=== PATIENT | female | born 1960 | race Caucasian/White ===

== ENCOUNTER 2021-09-05 10:00 | Outpatient (CLI) | payer MEDICAID, SELFPAY | END 2021-09-05 10:01 | disposition home or self-care (01) | LOC: WOUND 13:10 | PROVIDERS: PCP Student in an Organized Health Care Education/Training Program; Visit Provider Emergency Medicine | DX: E11.621 Type 2 diabetes mellitus with foot ulcer (principal); Z87.891 Personal history of nicotine dependence; L97.521 Non-pressure chronic ulcer of other part of left foot limited to breakdown of skin | CPT/HCPCS: 11042; 99202; 99213 ==

== ENCOUNTER → 2021-09-12 10:26 | Outpatient (BNVA) | payer MEDICAID, SELFPAY | PROVIDERS: PCP Student in an Organized Health Care Education/Training Program; Visit Provider Nurse Practitioner Family | DX: E11.621 Type 2 diabetes mellitus with foot ulcer (principal); I96 Gangrene, not elsewhere classified; L97.521 Non-pressure chronic ulcer of other part of left foot limited to breakdown of skin; Z87.891 Personal history of nicotine dependence | CPT/HCPCS: 11042 ==

== ENCOUNTER → 2021-09-19 09:32 | Outpatient (BNVA) | payer MEDICAID, SELFPAY | PROVIDERS: PCP Student in an Organized Health Care Education/Training Program; Visit Provider Emergency Medicine | DX: E11.621 Type 2 diabetes mellitus with foot ulcer (principal); I96 Gangrene, not elsewhere classified; L97.521 Non-pressure chronic ulcer of other part of left foot limited to breakdown of skin; Z87.891 Personal history of nicotine dependence | CPT/HCPCS: 11042; A6220 ==

== ENCOUNTER → 2021-09-26 08:26 | Outpatient (BNVA) | payer MEDICAID, SELFPAY | PROVIDERS: PCP Student in an Organized Health Care Education/Training Program; Visit Provider Emergency Medicine | DX: E11.621 Type 2 diabetes mellitus with foot ulcer (principal); I96 Gangrene, not elsewhere classified; L97.521 Non-pressure chronic ulcer of other part of left foot limited to breakdown of skin; Z87.891 Personal history of nicotine dependence | CPT/HCPCS: 11042 ==

== ENCOUNTER → 2021-10-03 09:01 | Outpatient (BNVA) | payer MEDICAID, SELFPAY | PROVIDERS: PCP Student in an Organized Health Care Education/Training Program; Visit Provider Emergency Medicine | DX: E11.621 Type 2 diabetes mellitus with foot ulcer (principal); I96 Gangrene, not elsewhere classified; L97.521 Non-pressure chronic ulcer of other part of left foot limited to breakdown of skin; Z87.891 Personal history of nicotine dependence | CPT/HCPCS: 11042 ==

== ENCOUNTER → 2021-10-10 09:18 | Outpatient (BNVA) | payer MEDICAID, SELFPAY | PROVIDERS: PCP Student in an Organized Health Care Education/Training Program; Visit Provider Emergency Medicine | DX: E11.621 Type 2 diabetes mellitus with foot ulcer (principal); L97.521 Non-pressure chronic ulcer of other part of left foot limited to breakdown of skin; Z87.891 Personal history of nicotine dependence | CPT/HCPCS: 11042 ==

== ENCOUNTER → 2021-10-24 09:32 | Outpatient (BNVA) | payer MEDICAID, SELFPAY | PROVIDERS: PCP Student in an Organized Health Care Education/Training Program; Visit Provider Emergency Medicine | DX: Z09 Encounter for follow-up examination after completed treatment for conditions other than malignant neoplasm (principal); Z87.891 Personal history of nicotine dependence | CPT/HCPCS: 99213 ==

== ENCOUNTER 2021-10-27 10:20 | Outpatient (CLI) | payer MEDICAID, SELFPAY ==
--- NOTE | 2021-10-27 10:27 | MR_ITS ---
WS: [id number] MRI LEFT FOOT without CONTRAST. COMPARISON: None Multiplanar, multisequence imaging is performed without contrast. History: Long-term ulceration along the plantar surface of the foot at the level of the first toe. Hi story of renal failure. There is a marker placed along the medial aspect of the first toe at the level of the IP joint. There is a focal soft tissue ulceration along the plantar surface of the first metatarsal head. Soft tissu e ulceration extends over a depth of 10 mm and a width of 5 mm. There is additional edema within the soft tissues along the plantar surface of the first toe and the medial aspect of the first metatarsal head and the toe. This is at the site of the marker indicating the abnormality. The soft tissue infl ammatory changes and thickening does extend to the first metatarsal head but there is no marrow edema present. No marrow edema in the first toe. There are extensive degenerative changes at the first metatarsophalangeal joint and the first IP join t. There are small erosions which are very slightly extra articular at the first metatarsophalangeal joint. Narrowing of the joint space. There is also a small amount of fluid along the plantar surface of the first metatarsal head. No fractures or marrow edema. Mild pes planus. There is mild loss of the normal arch of the foot. Ochoa rowing of the tarsal articulations with osteophytes. Distal Achilles tendon is normal. MR/MR foot LT con* [id number] IMPRESSION: 1. Soft tissue ulceration extends to the plantar surface of the first metatars al head. There is a small amount of fluid around the plantar surface of the met atarsal head but no marrow edema. No fractures. No secondary signs of osteomyel itis. Soft tissue ulceration measures 10 mm in depth by 5 mm. 2. There is additional soft tissue fibrosis and scarring surrounding the first toe. 3. Moderate osteoarthritis at the first metatarsophalangeal joint and first IP joint.
--- NOTE | 2021-10-27 12:30 | USCV_ITS ---
Dave Tashia Age: 60 Gender: F : 1960 Exam Date: 10/27/2021 13:19 Ordering Phys: Miranda Hernandez DO Technologist: Jaimee Haynes [place] [facility] [place]: HISTORY: Non healing wound lt foot. Almost healed now and it took 2 years PROCEDURES: FINDINGS: Only 1 area of reflux noted and it is below the knee on lt. No significant reflux in the deep veins left side Significant venous reflux of the greater than 500 ms was noted at the below-knee segment of the greater saphenous vein on the left side. No significant reflux in the small saphenous veins CONCLUSIONS 1. Significant venous reflux of greater than 500 ms was noted at the below-knee segment of the greater saphenous vein on the left side. The vein was measuring 0.35 cm in diameter, at a depth of 1.25 cm from the surface. 2. No evidence of DVT or superficial vein thrombosis 3. The venous dimensions and depth from the surface are as mentioned above Dr Douglas Zuniga MD [facility] (Electronically Signed) Final Date: 29 Oct 2021 16:28 S
== END 2021-10-27 10:21 | disposition home or self-care (01) ==
LOC: RAD 10:22
PROVIDERS: PCP Student in an Organized Health Care Education/Training Program; Visit Provider Emergency Medicine
DX: E11.621 Type 2 diabetes mellitus with foot ulcer (principal)
CPT/HCPCS: 73718; 93971

== ENCOUNTER → 2021-10-31 08:47 | Outpatient (BNVA) | payer MEDICAID, SELFPAY | PROVIDERS: PCP Student in an Organized Health Care Education/Training Program; Visit Provider Emergency Medicine | DX: Z09 Encounter for follow-up examination after completed treatment for conditions other than malignant neoplasm (principal) | CPT/HCPCS: 99212 ==

== ENCOUNTER → 2022-03-20 10:21 | Outpatient (BNVA) | payer MEDICAID, SELFPAY | PROVIDERS: PCP Student in an Organized Health Care Education/Training Program; Visit Provider Podiatrist Foot & Ankle Surgery | DX: E11.8 Type 2 diabetes mellitus with unspecified complications (principal); E11.9 Type 2 diabetes mellitus without complications; B35.1 Tinea unguium; I73.9 Peripheral vascular disease, unspecified; L85.3 Xerosis cutis; G62.9 Polyneuropathy, unspecified; Z86.31 Personal history of diabetic foot ulcer | CPT/HCPCS: 11055; 11721; 99203 ==

== ENCOUNTER → 2022-05-21 15:09 | Outpatient (BNVA) | payer MEDICAID, SELFPAY | PROVIDERS: PCP Nurse Practitioner Family; Visit Provider Internal Medicine Cardiovascular Disease | DX: I11.0 Hypertensive heart disease with heart failure (principal); I50.9 Heart failure, unspecified; E11.9 Type 2 diabetes mellitus without complications; Z79.84 Long term (current) use of oral hypoglycemic drugs; R07.89 Other chest pain; R09.89 Other specified symptoms and signs involving the circulatory and respiratory systems; Z87.891 Personal history of nicotine dependence; R94.31 Abnormal electrocardiogram [ECG] [EKG] | CPT/HCPCS: 93005; 99214 ==

== ENCOUNTER → 2022-06-04 12:38 | Outpatient (BNVA) | payer MEDICAID, SELFPAY | PROVIDERS: PCP Nurse Practitioner Family; Visit Provider Podiatrist Foot & Ankle Surgery | DX: E11.9 Type 2 diabetes mellitus without complications (principal); I73.9 Peripheral vascular disease, unspecified; B35.1 Tinea unguium; L85.3 Xerosis cutis; G62.9 Polyneuropathy, unspecified; Z86.31 Personal history of diabetic foot ulcer | CPT/HCPCS: 11721 ==

== ENCOUNTER 2022-06-25 12:50 | Outpatient (CLI) | payer MEDICAID, SELFPAY ==
--- NOTE | 2022-06-25 | USCV_ITS ---
Tashia Acosta Age: 61 Gender: F : 1960 Exam Date: 06/25/2022 13:10 Ordering Phys: Douglas Zuniga MD ([email or web address]) Technologist: Jaimee Haynes Exam Location: [facility] [place] Indication: CHF BP: 131 / 64 HR: 83 Rhythm: Sinus Technical Quality: Adequate MEASUREMENTS (Male / Female) Normal Values 2D ECHO LV Diastolic Diameter PLAX 3.1 cm 4.2 - 5.9 / 3.9 - 5.3 cm LV Systolic Diameter PLAX 2.5 cm LV Chamber Size 3.1 cm IVS Diastolic Thickness 1.8 cm 0.6 - 1.0 / 0.6 - 0.9 cm IVS Systolic Thickness 1.6 cm LVPW Diastolic Thickness 1.7 cm 0.6 - 1.0 / 0.6 - 0.9 cm LVPW Systolic Thickness 1.8 cm RV Chamber Size 2.5 cm LVOT Diameter 2.0 cm LV Ejection Fraction 2D Teich 40.3 % LV Ejection Fraction MOD 2C 48.6 % LV Ejection Fraction 2C AL 54.0 % LA Diameter 3.3 cm LA Width 3.2 cm LA Height 4.4 cm RA Width 3.1 cm RA Height 4.1 cm Aorta at Sinotubular Diameter 2.4 cm IVC Diameter 2.1 cm M-MODE Aortic Annulus Diameter 3.6 cm LA Ao Ratio MM 0.9 DOPPLER AV Peak Velocity 141.0 cm/s LVOT Peak Velocity 114.0 cm/s AV Area Cont Eq vti 2.6 cm squared AV Area Cont Eq pk 2.6 cm squared MV Area PHT 3.7 cm squared Mitral E to A Ratio 0.7 MV E' Velocity 46.0 cm/s Mitral E to MV E' Ratio 18.1 Mitral E to LV E' Lateral Ratio 16.1 Mitral E to LV E' Septal Ratio 21.2 TR Peak Velocity 216.9 cm/s TR Peak Gradient 18.8 mmHg TR Mean Velocity 147.5 cm/s TR Mean Gradient 9.9 mmHg TR Velocity Time Integral 51.0 cm TV Peak E Velocity 57.0 cm/s Right Atrial Pressure 3.0 mmHg Pulmonary Artery Systolic Pressu 21.8 mmHg PV Peak Velocity 101.0 cm/s RV Acceleration Time 0.1 s RV Ejection Time 0.3 s RV AcT/ET 0.4 FINDINGS Left Ventricle Normal left ventricular size and systolic function, EF 67 %. Moderate left ventricular hypertrophy. No regional wall motion abnormalities. Grade I/IV diastolic dysfunction (abnormal relaxation filling pattern), normal to mildly elevated filling pressures. Right Ventricle Normal right ventricular size and systolic function. Right Atrium Normal right atrial size. Left Atrium Mildly increased left atrial size. Mitral Valve Thickened mitral valve. Moderate mitral annular calcification. Aortic Valve Thickened aortic valve. Tricuspid Valve Mild tricuspid valve regurgitation. Pulmonic Valve No gross abnormalities noted Pericardium No pericardial effusion. Aorta Normal aortic annulus size. IVC Normal inferior vena cava. CONCLUSIONS Normal left ventricular size and systolic function, EF 67 %. Moderate left ventricular hypertrophy. No regional wall motion abnormalities. Grade I/IV diastolic dysfunction (abnormal relaxation filling pattern), normal to mildly elevated filling pressures. Mildly increased left atrial size. Thickened mitral valve. Moderate mitral annular calcification. Thickened aortic valve. Mild tricuspid valve regurgitation. Estimated pulmonary artery peak systolic pressure was 22 mmHg There is no pericardial effusion. There are no intracardiac masses. No similar previous studies are available for comparison Dr Douglas Zuniga MD [facility] (Electronically Signed) Final Date: 25 June 2022 16:50 S
--- NOTE | 2022-06-25 13:00 | USCV_ITS ---
Dave Tashia Age: 61 Gender: F : 1960 Exam Date: 06/25/2022 13:32 Ordering Phys: Douglas Zuniga MD ([email or web address]) Technologist: Jaimee Haynes Exam Location: [facility] [place] Indication: BRUIT AND CCA STENOSIS Risk Factors: Unknown Previous Vascular Surgery: None Right Brachial BP: / Left Brachial BP: / Right Left Velocity (cm/s) Spectral Plaque Velocity (cm/s) Spectral Plaque Syst/Diast Broadening Syst/Diast Broadening 113.60/26.50 Prox CCA 87.10 / 22.10 83.80/ 22.10 Mid CCA 76.70 / 14.50 81.60/ 14.30 Hetro Distal CCA 73.70 / 19.40 Hetro 79.40/ 19.80 Hetro Prox ICA 102.70/ 25.20 Hetro 92.60/ 34.20 Mid ICA 107.10/ 23.00 90.90/ 30.30 Distal ICA 93.30 / 32.10 119.10 Hetro ECA 158.90 Hetro 1.11 ICA/CCA 1.40 Antegrade Vertebral Antegrade 34.60/ 11.50 cm/s 88.80/ 23.00 cm/s Bi Subclavian Tri 127.7 199.4 0 0 FINDINGS Moderate heterogenous plaques at the bifurcations and proximal internal carotid arteries bilaterally Intimal thickening and minimal plaques in the common carotid arteries bilaterally. Antegrade flow in the vertebral arteries bilaterally. Near normal Doppler velocities in the external carotid and subclavian arteries bilaterally CONCLUSIONS Moderate heterogenous plaques at the bifurcations and proximal internal carotid arteries bilaterally with a Doppler features suggesting less than 50% stenosis. Intimal thickening and minimal plaques in the common carotid arteries bilaterally Dr Douglas Zuniga MD [facility] (Electronically Signed) Final Date: 25 June 2022 17:11 S
== END 2022-06-25 12:51 | disposition home or self-care (01) ==
LOC: RAD 12:51
PROVIDERS: PCP Nurse Practitioner Family; Visit Provider Internal Medicine Cardiovascular Disease
DX: I65.29 Occlusion and stenosis of unspecified carotid artery (principal); I50.9 Heart failure, unspecified; R09.89 Other specified symptoms and signs involving the circulatory and respiratory systems; I08.3 Combined rheumatic disorders of mitral, aortic and tricuspid valves
CPT/HCPCS: 93306; 93880

== ENCOUNTER 2022-07-12 06:42 | Outpatient (CLI) | payer MEDICAID, SELFPAY ==
--- NOTE | 2022-07-12 | ECG_ITS ---
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 Interpretive Statements NAME OF STUDY: LEXISCAN SESTAMIBI STRESS TEST INDICATION: [rule out ischemia, ] Procedure: At the baseline, the blood pressure was 150/88 mmHg with a heart rate of 78 bpm. The electrocardiogram showed normal sinus rhythm, normal axis with normal ST and T's. The Lexiscan was infused over a period of 20 seconds. A total of 0.4 mg of Lexiscan was infused. The stress phase was continued for a total of 5 minutes. Heart rate was at the end of stress phase was 92 bpm and a blood pressure of 135/70 mmHg. The EKG at the peak infusion revealed normal sinus rhythm with no significant ST-T wave changes. Sestamibi was injected 20 seconds after the Lexiscan infusion. Blood pressure at the end of recovery phase was 138/70 mmHg with a heart rate of 90 bpm. Conclusion: 1. Normal EKG response to Lexiscan infusion 2. No Lexiscan induced chest pain or cardiac arrhythmia. 3. Normal blood pressure and heart rate response. 4. Sestamibi/sestamibi perfusion scan pending; see separate report. Electronically Signed On 07-22-2022 20:23:32 HOUSING LIAISON by José Luis Valdez M.D. [email or web address] Del[employer] [email or web address] lady of [id number]
[2022-07-12 07:05] VITALS: BMI 36.1
--- NOTE | 2022-07-12 07:09 | NMCV_ITS ---
NM misa perf SPECT r/s* [id number] Tashia Acosta Age: 61 Gender: F : 1960 Exam Date: 07/12/2022 07:09 Ordering Phys: Douglas Zuniga MD ([email or web address]) Technologist: JAMARCUS Palacios Exam Location: [facility] Indications: CORONARY ANGIOPLASTY STATUS STRESS TEST Please see separate stress test report in [facility] for full findings IMAGE PROTOCOL Rest/Stress 1 Lexiscan Day Radiopharmaceutical Dose (mCi) Administration Site Administered by Rest: Tc-99m 10.6 IV JAMARCUS Gustafson Sestamibi Stress:Tc-99m 32.9 IV JAMARCUS Gustafson Sestamibi Rest: 12-Jul-2022 60 Discovery 630 Stress: 12-Jul-2022 30 Discovery 630 0.4mg Lexiscan. Supine position only as patient was unable to lay prone. SPECT RESULTS Technical Quality: Excellent Raw Data Analysis: Normal Image Corrections: No attenuation or motion correction applied Summed Stress Score: 4 Summed Rest Score: 2 Summed Difference Score: 2 PERFUSION FINDINGS Small sized, fixed perfusion defects noted in apical lateral, inferolateral and inferior amaya. 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 FUNCTIONAL RESULTS (calculated via Gated SPECT) Stress Image LV EF (%): 78 Stress EDV (mL):92 TID: 1.11 Stress ESV (mL):20 FUNCTIONAL FINDINGS: There is normal left ventricular systolic function. IMPRESSIONS 1. Abnormal myocardial perfusion imaging with small sized prior infarcts seen in the left circumflex artery and RCA territories. 2. LV systolic function is normal José Luis Valdez MD (Electronically Signed) Final Date: 14 July 2022 10:34 S
[2022-07-12 09:00] VITALS: BP 138/70; PULSE 90
== END 2022-07-12 06:43 | disposition home or self-care (01) ==
PROVIDERS: PCP Nurse Practitioner Family; Visit Provider Internal Medicine Cardiovascular Disease
DX: Z98.61 Coronary angioplasty status (principal)
CPT/HCPCS: 36415; 78452; 93017; 96374; A9500

== ENCOUNTER → 2022-08-13 12:47 | Outpatient (BNVA) | payer MEDICAID, SELFPAY | PROVIDERS: PCP Nurse Practitioner Family; Visit Provider Podiatrist Foot & Ankle Surgery | DX: E11.9 Type 2 diabetes mellitus without complications (principal); I73.9 Peripheral vascular disease, unspecified; B35.1 Tinea unguium; L85.3 Xerosis cutis; G62.9 Polyneuropathy, unspecified; Z86.31 Personal history of diabetic foot ulcer; L84 Corns and callosities | CPT/HCPCS: 11055; 11721 ==

== ENCOUNTER 2022-11-28 09:08 | Emergency (ER) | payer MEDICAID, SELFPAY ==
[2022-11-28 09:08] VITALS: BP 187/83; PULSE 84; RESP 18; TEMP 36.5; O2SAT 96; BMI 35.5
--- NOTE | 2022-11-28 09:27 | XRR_ITS ---
PROCEDURE INFORMATION: Exam: XR Chest Exam date and time: 11/28/2022 9:31 AM Age: 61 years old Clinical indication: Cough and dyspnea; Prior surgery; Surgery date: 6+ months; Surgery type: Dialysis cath; Additional info: Dyspnea/cough TECHNIQUE: Imaging protocol: Radiologic exam of the chest. Views: 1 view. COMPARISON: No relevant prior studies available. FINDINGS: Tubes, catheters and devices: Central venous catheter its tip overlying the superior vena cava. Surgical clips seen involving the left arm. Lungs: Unremarkable. No consolidation. Pleural spaces: Unremarkable. No pleural effusion. No pneumothorax. Heart/Mediastinum: Unremarkable. No cardiomegaly. Bones/joints: Unremarkable. XR/XR chest 1V portable [id number] IMPRESSION: No acute findings.
--- NOTE | 2022-11-28 09:27 | ECG_ITS ---
[facility] Test Date: 2022-11-28 Pat Name: Tashia Acosta Department: Room: Gender: Female Wood Floor Refinisher: : 1960 Requested By: Kenroy Prado Order Number: [id number] Power MD: José Luis Valdez M.D. Measurements Intervals [place] Rate: 80 P: 52 [place]: 145 QRS: 72 QRSD: 108 T: 98 QT: 384 QTc: 443 Interpretive Statements SINUS RHYTHM MINIMAL ST DEPRESSION [0.025+ mV ST DEPRESSION] No previous ECG available for comparison Electronically Signed On 11-28-2022 12:28:49 CDT by José Luis Valdez M.D. [email or web address]/[id number]
[2022-11-28 09:43] VITALS: BP 177/91; PULSE 80; O2SAT 100
[2022-11-28 10:15] LABS: Eosinophils # 0.1 10^3/uL (0.0-0.8); Eosinophils % 2.5 %; Hematocrit 40.5 % (37.0-47.0); Hemoglobin 11.8 g/dL (11.5-15.3); Lymphocytes # 0.7 10^3/uL (0.8-4.8); Lymphocytes % 19.9 %; Mean Corpuscular HGB Conc 29.1 g/dL (30.0-36.0); Mean Corpuscular Hemoglobin 29.9 pg (28.0-34.0); Mean Corpuscular Volume 102.5 fl (81-99); Mean Platelet Volume 11.1 fL (7.4-10.4); Monocytes # 0.4 10^3/uL (0.2-0.9); Monocytes % 10.8 %; Neutrophils # 2.39 10^3/uL (1.8-7.7); Neutrophils % 66.2 %; Nucleated Red Blood Cells % 0 %; Platelet Count 148 10^3/cmm (130-400); Red Blood Count 3.95 10^6/uL (4.1-5.3); Red Cell Distribution Width 14.5 % (12.1-15.1); White Blood Count 3.6 10^3/uL (4.0-10.0)
[2022-11-28 10:39] LABS: Alanine Aminotransferase 6 U/L (0-33); Albumin Level 3.7 g/dL (3.5-5.2); Alkaline Phosphatase 75 U/L (35-105); Anion Gap 12.7 (5-19); Aspartate Amino Transferase 20 U/L (0-32); Blood Urea Nitrogen 28 mg/dL (8-23); Calcium 8.9 mg/dL (8.5-10.5); Carbon Dioxide 28 mmol/L (22-29); Chloride 101 mmol/L (98-107); Globulin 3.2 g/dL (1.3-4.6); Glomerular Filtration Rate 15.3 mL/min (90-130); Glucose 117 mg/dL (65-115); NT Pro B Type Natriuretic Pept 3549 pg/mL (0-125); Osmolality Calculated 291 mOsm/kg (285-295); Potassium 4.7 mmol/L (3.5-5.1); Sodium 137 mmol/L (136-145); Total Bilirubin 0.3 mg/dL (0.15-1.2); Total Protein 6.9 g/dL (6.6-8.7)
--- NOTE | 2022-11-28 11:10 | W.ED.SOB ---
HPI - SOB/Dyspnea General: Chief Complaint: Shortness of Breath/Dyspnea Stated Complaint: resp distress Time Seen by Provider: 11/28/22 09:10 Source: patient Mode of arrival: EMS History of Present Illness: HPI Narrative: 61-year-old female presents emergency room complaining of shortness of breath. She has a history of end-stage renal disease was getting her dialysis run this morning became short of breath she is normally on 2 to 3 L of oxygen she arrived here on 4 L. She is asymptomatic at this time. She had received some Benadryl at the dialysis clinic. She is satting on 1 L when I came to the room at upper 90% increase her to 2 L she remained asymptomatic. She is awake alert and oriented and denies ever having any chest discomfort. Her end-stage renal disease she tells me it was precipitated by complications of COVID. MD elicited complaint: shortness of breath Onset (ago): minute(s) Timing: constant Severity: mild Exacerbating factors: nothing Relieving factors: nothing Associated symptoms: Deny abdominal pain, chest congestion, chest pain, cough, diaphoresis, dizziness, extremity pain, fever(s), hemoptysis, lightheadedness, myalgias, nausea, orthopnea, palpitations, paresthesias, polydipsia, polyuria, rash, sense of impending doom, syncope or vomiting Treatment prior to arrival: none Related Data: Home oxygen amount: 2 liters Review of Systems Const: Denies: fever(s), chills, fatigue, malaise or diaphoresis ENMT: Denies: throat pain, ear or mastoid pain, nasal discharge or nasal congestion Card: Denies: chest pain, palpitations, lightheadedness, syncope or orthopnea Resp: Reports: dyspnea; Denies: productive cough, non-productive cough, hemoptysis or chest congestion GI: Denies: abdominal pain, nausea or vomiting : Denies: flank pain, difficulty voiding, dysuria, urinary frequency or urinary urgency Musc: Denies: extremity pain Skin/Breast: Denies: rash or pruritus Neuro: Denies: dizziness Endo: Denies: polyuria or polydipsia PFSH ED PFSH: Medical History CHF (congestive heart failure) HTN (hypertension) PAD (peripheral artery disease) Family History Mother CAD (coronary artery disease) Pacemaker Hypertension Diabetes Social History Smoking and tobacco status: former smoker Physical Exam Const: COMMON NORMALS: no acute distress GENERAL APPEARANCE: cooperative and comfortable ORIENTATION/CONSCIOUSNESS: Yes awake, Yes oriented to person, Yes oriented to place and Yes oriented to time HENMT: COMMON NORMALS: normocephalic, atraumatic and hearing grossly normal bilaterally HEAD & SCALP: normocephalic and atraumatic Resp: COMMON NORMALS: normal respiratory effort, No retractions, No use of accessory muscles and clear to auscultation bilaterally AUSCULTATION: clear to auscultation bilaterally Cardio: COMMON NORMALS: regular rate, regular rhythm and No murmurs present (Cardio) RATE: regular rate RHYTHM: regular rhythm GI: COMMON NORMALS: Soft to palpation and No hepatosplenomegaly present AUSCULTATION: Yes normoactive bowel sounds PALPATION: Yes Soft to palpation, No Tenderness to palpation present (GI), No Guarding due to palpation present (GI) and Yes No hepatosplenomegaly present Extremity: COMMON NORMALS: normal to inspection, capillary refill normal, no clubbing, cyanosis or edema, no calf tenderness and no pedal edema Neuro: SENSORIUM/ORIENTATION: Yes oriented to person, Yes oriented to place and Yes oriented to time Skin: COMMON NORMALS: no rashes or lesions noted GENERAL SKIN EXAM: no rashes or lesions noted Course Vital Signs: Vital signs: Vital Signs Temperature 97.7 F 11/28/22 09:08 Pulse Rate 80 11/28/22 09:43 Respiratory Rate 18 11/28/22 09:08 Blood Pressure 177/91 11/28/22 09:43 Pulse Oximetry 100 11/28/22 09:43 Oxygen Delivery Me thod Nasal Cannula 11/28/22 09:43 Oxygen Flow Rate 2 11/28/22 09:43 MDM - SOB/Dyspnea Medical Decision Making Labs and imaging reviewed patient's oxygen saturations are normal on her usual oxygen level. No acute findings on her chest x-ray. We will discharge patient home she should return directly to dialysis clinic to complete her round of dialysis. He has not had any chest pain. Medical Records I reviewed the patient's medical records. Lab Data I reviewed the patient's lab results. 11/28/22 10:05 11/28/22 10:05 Labs/Radiology: Radiology Impressions Chest X-Ray 11/28/22 09:27 IMPRESSION: No acute findings. Laboratory Results WBC 3.6 10^3/uL (4.0-10.0) L 11/28/22 10:05 RBC 3.95 10^6/uL (4.1-5.3) L 11/28/22 10:05 Hgb 11.8 g/dL (11.5-15.3) 11/28/22 10:05 Hct 40.5 % (37.0-47.0) 11/28/22 10:05 MCV 102.5 fl (81-99) H 11/28/22 10:05 MCH 29.9 pg (28.0-34.0) 11/28/22 10:05 MCHC 29.1 g/dL (30.0-36.0) L 11/28/22 10:05 RDW 14.5 % (12.1-15.1) 11/28/22 10:05 Plt Count 148 10^3/cmm (130-400) 11/28/22 10:05 MPV 11.1 fL (7.4-10.4) H 11/28/22 10:05 Neut % (Auto) 66.2 % 11/28/22 10:05 Lymph % (Auto) 19.9 % 11/28/22 10:05 [place] % (Auto) 10.8 % 11/28/22 10:05 Eos % (Auto) 2.5 % 11/28/22 10:05 Baso % (Auto) 0.0 % 11/28/22 10:05 Neut # (Auto) 2.39 10^3/uL (1.8-7.7) 11/28/22 10:05 Lymph # (Auto) 0.7 10^3/uL (0.8-4.8) L 11/28/22 10:05 [place] # (Auto) 0.4 10^3/uL (0.2-0.9) 11/28/22 10:05 Eos # (Auto) 0.1 10^3/uL (0.0-0.8) 11/28/22 10:05 Baso # (Auto) 0.0 10^3/uL (0.0-0.1) 11/28/22 10:05 Nucleated RBC % (auto) 0 % 11/28/22 10:05 Nucleated RBCs # 0.0 /100WBC 11/28/22 10:05 Sodium 137 mmol/L (136-145) 11/28/22 10:05 Potassium 4.7 mmol/L (3.5-5.1) 11/28/22 10:05 Chloride 101 mmol/L (98-107) 11/28/22 10:05 Carbon Dioxide 28 mmol/L (22-29) 11/28/22 10:05 Anion Gap 12.7 (5-19) 11/28/22 10:05 BUN 28 mg/dL (8-23) H 11/28/22 10:05 Creatinine 3.1 mg/dL (0.5-0.9) H 11/28/22 10:05 GFR Calculation 15.3 mL/min (90-130) L 11/28/22 10:05 Glucose 117 mg/dL (65-115) H 11/28/22 10:05 Calculated Osmolality 291 mOsm/kg (285-295) 11/28/22 10:05 Calcium 8.9 mg/dL (8.5-10.5) 11/28/22 10:05 Total Bilirubin 0.3 mg/dL (0.15-1.2) 11/28/22 10:05 AST 20 U/L (0-32) 11/28/22 10:05 ALT 6 U/L (0-33) 11/28/22 10:05 Alkaline Phosphatase 75 U/L (35-105) 11/28/22 10:05 NT-Pro-B Natriuret Pep 3549 pg/mL (0-125) H 11/28/22 10:05 Total Protein 6.9 g/dL (6.6-8.7) 11/28/22 10:05 Albumin 3.7 g/dL (3.5-5.2) 11/28/22 10:05 Globulin 3.2 g/dL (1.3-4.6) 11/28/22 10:05 Urine Color Light yellow (Yellow) 11/28/22 11:06 Urine Appearance Clear (CLEAR) 11/28/22 11:06 Urine pH 8 (5-7) H 11/28/22 11:06 Ur Specific [place] 1.015 (1.005-1.030) 11/28/22 11:06 Urine Protein 1+ (Negative) H 11/28/22 11:06 Urine Glucose (UA) Norm (Normal) 11/28/22 11:06 Urine Ketones Negative (Negative) 11/28/22 11:06 Urine Blood Neg (Negative) 11/28/22 11:06 Urine Nitrate Negative (Negative) 11/28/22 11:06 Urine Bilirubin Neg (Negative) 11/28/22 11:06 Prot Sulfosalicylic Acd Positive (Negative) 11/28/22 11:06 Urine Urobilinogen Norm mg/dL (Negative) 11/28/22 11:06 Ur Leukocyte Esterase Negative (Negative) 11/28/22 11:06 Urine RBC None /hpf (0-2) 11/28/22 11:06 Urine WBC Rare /hpf (0-5) 11/28/22 11:06 Ur Squamous Epith Cells 0-4 /hpf (0-5) H 11/28/22 11:06 Amorphous Sediment Not Reportable 11/28/22 11:06 Urine Bacteria Trace /hpf (NONE) 11/28/22 11:06 Discharge Plan Discharge Patient Disposition: Home Clinical Impression: Dyspnea, HTN (hypertension), ESRD (end stage renal disease) on dialysis Condition: Stable Prescriptions: No Action cholecalciferol (vitamin D3) 25 mcg (1,000 unit) capsule 25 mcg PO DAILY glipizide 5 mg tablet 5 mg PO DAILY furosemide 80 mg tablet 80 mg PO DAILY amlodipine 10 mg tablet 10 mg PO DAILY metoprolol tartrate 25 mg tablet 12.5 mg PO BID (DME) diabetic shoes See Rx Instructions .Route .MEDSUPPLY Qty: 1 0RF Rx Instructions: As directed (DME) diabetic shoes with 3 inserts See Rx Instructions .Route .MEDSUPPLY Qty: 1 0RF Rx Instructions: As directed pantoprazole 40 mg Tablet,Delayed Release (Dr/Ec) 40 mg PO DAILY oxycodone 5 mg tablet 5 mg PO Q4H PRN (Reason: Pain) sevelamer carbonate 800 mg tablet 800 mg PO TID RenaPlex-D 800 mcg-12.5 mg -2,000 unit Tablet 1 tab PO DAILY Discharge Orders: Discharge ED (Routine); Ordered 11/28/22 Ordered By: Kenroy Taylor Discharge Diet: Usual diet Discharge Activity: Increase activity as tolerated Patient Instructions: Opioid Safety, Pain Management Activity Restrictions/Additional Instructions: Recommend you return to dialysis clinic to complete your regular dialysis run. Coding Level of Care Code ED Toll Repairer Central Office for Nany Archer
[2022-11-28 12:06] LABS: Add Urine Microscopic? YES; Bilirubin Urine Neg (Negative); Blood Urine Neg (Negative); Glucose Urine UA Norm (Normal); Ketones Urine Negative (Negative); Leukocyte Esterase Urine Negative (Negative); Nitrate Urine Negative (Negative); Protein Urine 1+ (Negative); Specific Gravity, Urine 1.015 (1.005-1.030); Sulfosalicylic Acid Urine Positive (Negative); Urine Appearance Clear (CLEAR); Urine Color Light yellow (Yellow); Urobilinogen Urine Norm (Negative); pH Urine 8 (5-7)
[2022-11-28 12:07] LABS: Bacteria Urine TRACE /hpf; Squamous Epithelial Cell Urine 0-4 /hpf (0-5); WBC Urine RARE /hpf (0-5)
[2022-11-28 12:08] LABS: Add Urine Culture? No
--- NOTE | 2022-12-06 13:21 | DCPLANNER ---
table games shift manager called patient due to no primary care physician - no answer at this time.
== END 2022-11-28 11:32 | disposition home or self-care (01) ==
PROVIDERS: Emergency Provider Family Medicine
DX: R06.00 Dyspnea, unspecified (principal); I13.2 Hypertensive heart and chronic kidney disease with heart failure and with stage 5 chronic kidney disease, or end stage renal disease; N18.6 End stage renal disease; I50.9 Heart failure, unspecified; Z99.2 Dependence on renal dialysis; Z99.81 Dependence on supplemental oxygen; Z87.891 Personal history of nicotine dependence; Z79.84 Long term (current) use of oral hypoglycemic drugs
CPT/HCPCS: 36415; 71045; 80053; 81001; 83880; 85025; 93005; 99285

== ENCOUNTER → 2022-12-10 12:11 | Outpatient (BNVA) | payer MEDICAID, SELFPAY | PROVIDERS: Visit Provider Specialist | DX: I11.0 Hypertensive heart disease with heart failure (principal); I50.9 Heart failure, unspecified | CPT/HCPCS: 99214 ==

== ENCOUNTER 2022-12-31 08:26 | Observation (INO) | payer MEDICAID, SELFPAY ==
[2022-12-31] VITALS (9 sets, daily range): BP systolic 147–167; BP diastolic 68–92; PULSE 72–90; RESP 15–28; TEMP 36.5–36.6; O2SAT 74–96; BMI 36.1
--- NOTE | 2022-12-31 09:27 | CT_ITS ---
WS: [id number] CT ABDOMEN AND PELVIS NONCONTRAST HISTORY: Abdominal pain TECHNIQUE: Imaging performed through the abdomen and pelvis. Coronal and sagittal reformats are submi tted. All CT scans at [facility] use at least one of these dose optimization techniques: auto mated exposure control; mA and/or kV adjustment per patient size (includes targeted exams where dose is matched to clinical indication); or iterative reconstruction. DLP: 1113.25 mGy.cm COMPARISON: None available. Lower thorax: Mild hazy attenuation at the lung bases is probably due to poor inspiration or mild pne umonitis. Mild dependent changes.. Tiny LEFT pleural effusion. Low-attenuation masses near the RIGHT heart are probably cardiophrenic cysts. Liver: Very mild hepatomegaly. No bile duct dilatation. Gallbladder: Cholecystectomy. Pancreas: Mild atrophy. Mildly distended common bile duct is probably on the basis of the cholecystec adia. No obstruction. Spleen: Mildly enlarged spleen measures 15 cm in length. Adrenal glands: Bilateral fat-containing adrenal masses. Likely adrenal myelolipomas. Right kidney: P erinephric stranding and mild atrophy. Vascular calcifications. Left kidney: Perinephric stranding and mild atrophy. No obstruction. Aorta: Moderate to severe atherosclerosis abdominal aorta. No aneurysm. Atherosclerosis continues int o the common iliac arteries. Heavy calcification mesenteric arteries. No free fluid. There is an acute inflammatory process involving the omentum and mesenteric fat in the pelvis just to the LEFT of midline. There is focal stranding measuring 6.9 x 5.6 cm it extends to th e peritoneal wall. There is additional overlying subcutaneous edema and stranding. There is a more f ocal ill-defined low-attenuation mass measuring 2.9 x 2.6 cm within the ventral abdominal wall. GI tract: No obstructive pattern. Diffuse mild constipation. Mild diverticular burden with no acute d iverticulitis. Abdominal wall: Diffuse soft tissue stranding and cellulitis below the umbilicus and along the midlin e. There is a more focal low-attenuation mass just to the LEFT of midline which may be a small phlegm on or abscess developing. Pelvis: Uterus and ovaries are both identified. Negative. Negative urinary bladder. Osseous structures: Unremarkable. CT/CT abdomen pelvis wo con [id number] IMPRESSION: 1. Large area of omental and mesenteric fat stranding just to the LEFT of midl ine in the infraumbilical region. Suspect this is probably an area of omental i nfarction which extends to the ventral abdominal wall. There is also continuous inflammation extending into the subcutaneous soft tissues and a possible subcu taneous abscess or phlegmon at the same level. Due to the extensive involvement of the omentum and the subcutaneous soft tissue recommend follow-up CT in 3-4 weeks after treatment with short resolution. This would ensure no underlying ad ditional mass. There may have been a defect within the abdominal wall allowing the inflammatory changes associate with the infarct to continue beyond the amelia toneal cavity. 2. Mild bilateral perinephric stranding with no obstruction. 3. Prior cholecystectomy. 4. Sigmoid diverticulosis without acute diverticulitis. 5. Bilateral adrenal myolipomas.
--- NOTE | 2022-12-31 09:32 | ED_ITS ---
HPI - Abdominal Pain General: Chief Complaint: Abdominal Pain Stated Complaint: abd pain Time Seen by Provider: 12/31/22 08:27 Source: patient Mode of arrival: ambulatory History of Present Illness: 62-year-old female presents emergency room complaining of epigastric supraumbilical pain. He said this been present ever since she had her hernia surgery done in October. She has had some nausea and vomiting. She denies any chest pain or shortness of breath she has been very nauseous. She has used some oxycodone for relief of the pain but is still having discomfort. She denies any medication melena hematemesis or coffee-ground emesis. MD elicited complaint: abdominal pain Onset (ago): week(s) Pain Consistency: constant Location: Epigastric Quality: cramping Exacerbating factors: eating Relieving factors: nothing Associated Symptoms: Reports bloating, GI cramping, nausea and poor appetite; Denies anorexia, belching, change in bowel habits, change in stool character, chills, coffee ground emesis, constipation, diarrhea, dyspepsia, dysuria, excessive flatus, fever(s), heartburn, hematochezia, hematuria, hematemesis, fecal incontinence, loose stools, melena, syncope and vomiting Review of Systems Const: Denies: fever(s) or chills Card: Denies: syncope Resp: Denies: dyspnea, productive cough or non-productive cough GI: Reports: nausea, bloating and GI cramping; Denies: vomiting, hematemesis, coffee ground emesis, heartburn, diarrhea, constipation, belching, excessive flatus, fecal incontinence, change in bowel habits, change in stool character, hematochezia or melena : Denies: dysuria or hematuria Skin/Breast: Denies: rash or pruritus PFS ED PFSH: Medical History (Updated 12/31/22 @ 13:10 by Kenroy Taylor DO) CHF (congestive heart failure) Chronic hepatitis B COPD (chronic obstructive pulmonary disease) Diabetes mellitus Fluid overload GERD (gastroesophageal reflux disease) Hemodialysis patient Hepatitis B HTN (hypertension) PAD (peripheral artery disease) Surgical History S/P cholecystectomy S/P hernia surgery x 2 S/P oophorectomy Family History Mother CAD (coronary artery disease) Pacemaker Hypertension Diabetes Social History (Updated 12/31/22 @ 12:35 by Andrew Reyes MD) Smoking and tobacco status: former smoker Alcohol intake: never Physical Exam Const: GENERAL APPEARANCE: cooperative and comfortable ORIENTATION/CONSCIOUSNESS: Yes awake, Yes oriented to person, Yes oriented to place and Yes oriented to time HENMT: COMMON NORMALS: normocephalic, atraumatic and hearing grossly normal bilaterally HEAD & SCALP: normocephalic and atraumatic Resp: COMMON NORMALS: normal respiratory effort, No retractions, No use of accessory muscles and clear to auscultation bilaterally AUSCULTATION: clear to auscultation bilaterally Cardio: COMMON NORMALS: regular rate, regular rhythm and No murmurs present (Cardio) RATE: regular rate RHYTHM: regular rhythm GI: COMMON NORMALS: Soft to palpation and No hepatosplenomegaly present AUSCULTATION: Yes normoactive bowel sounds PALPATION: Yes Soft to palpation, No Tenderness to palpation present (GI), No Guarding due to palpation present (GI) and Yes No hepatosplenomegaly present Extremity: COMMON NORMALS: normal to inspection, capillary refill normal, no clubbing, cyanosis or edema, no calf tenderness and no pedal edema Neuro: SENSORIUM/ORIENTATION: Yes oriented to person, Yes oriented to place and Yes oriented to time Skin: COMMON NORMALS: no rashes or lesions noted GENERAL SKIN EXAM: no rashes or lesions noted Course Vital Signs: Vital signs: Vital Signs Temperature 97.8 F 12/31/22 09:02 Pulse Rate 86 12/31/22 12:12 Respiratory Rate 16 12/31/22 12:12 Blood Pressure 167/85 12/31/22 12:12 Pulse Oximetry 92 12/31/22 12:12 Oxygen Delivery Me thod Nasal Cannula 12/31/22 12:12 Oxygen Flow Rate 3 12/31/22 12:12 MDM - Abdominal Pain Medical Decision Making Patient's hyperkalemia confirmed by repeat lab draw and treated in the ER. Initially was not aware that she was on end-stage renal disease on dialysis was not on her history and she had not listed when asked her chronic medical problems. Her hyperkalemia was treated in the ER we will admit for hyperkalemia discussed with the hospitalist dialysis orders written CT there is question of ischemic area call and talk to Dr. Myles she thinks it is omental ischemia is probably transient from her hernia surgery she did not feel like a CTA for potential bowel ischemia was needed. There is an area of seroma that shows inflammation extending to the subcutaneous tissues infra umbilical. However on gross examination abdominal wall there is no redness no inflammation no sign of irritation there is no pain in that region either. Did consult Dr. Holder for the CT findings he seen the patient in the emergency room. Dr. Dr. Calero is consulted nephrology Medical Records I reviewed the patient's medical records. Lab Data I reviewed the patient's lab results. 12/31/22 10:06 12/31/22 11:52 Labs/Radiology: Radiology Impressions Abdomen/Pelvis CT 12/31/22 09:27 IMPRESSION: 1. Large area of omental and mesenteric fat stranding just to the LEFT of midline in the infraumbilical region. Suspect this is probably an area of omental infarction which extends to the ventral abdominal wall. There is also continuous inflammation extending into the subcutaneous soft tissues and a possible subcutaneous abscess or phlegmon at the same level. Due to the extensive involvement of the omentum and the subcutaneous soft tissue recommend follow-up CT in 3-4 weeks after treatment with short resolution. This would ensure no underlying additional mass. There may have been a defect within the abdominal wall allowing the inflammatory changes associate with the infarct to continue beyond the peritoneal cavity. 2. Mild bilateral perinephric stranding with no obstruction. 3. Prior cholecystectomy. 4. Sigmoid diverticulosis without acute diverticulitis. 5. Bilateral adrenal myolipomas. Laboratory Results WBC 4.9 10^3/uL (4.0-10.0) 12/31/22 10:06 RBC 3.62 10^6/uL (4.1-5.3) L 12/31/22 10:06 Hgb 10.9 g/dL (11.5-15.3) L 12/31/22 10:06 Hct 37.7 % (37.0-47.0) 12/31/22 10:06 MCV 104.1 fl (81-99) H 12/31/22 10:06 MCH 30.1 pg (28.0-34.0) 12/31/22 10:06 MCHC 28.9 g/dL (30.0-36.0) L 12/31/22 10:06 RDW 14.0 % (12.1-15.1) 12/31/22 10:06 Plt Count 154 10^3/cmm (130-400) 12/31/22 10:06 MPV 11.0 fL (7.4-10.4) H 12/31/22 10:06 Neut % (Auto) 82.3 % 12/31/22 10:06 Lymph % (Auto) 10.6 % 12/31/22 10:06 [place] % (Auto) 5.7 % 12/31/22 10:06 Eos % (Auto) 0.4 % 12/31/22 10:06 Baso % (Auto) 0.0 % 12/31/22 10:06 Neut # (Auto) 4.03 10^3/uL (1.8-7.7) 12/31/22 10:06 Lymph # (Auto) 0.5 10^3/uL (0.8-4.8) L 12/31/22 10:06 [place] # (Auto) 0.3 10^3/uL (0.2-0.9) 12/31/22 10:06 Eos # (Auto) 0.0 10^3/uL (0.0-0.8) 12/31/22 10:06 Baso # (Auto) 0.0 10^3/uL (0.0-0.1) 12/31/22 10:06 Nucleated RBC % (auto) 0 % 12/31/22 10:06 Nucleated RBCs # 0.0 /100WBC 12/31/22 10:06 Sodium 132 mmol/L (136-145) L 12/31/22 10:06 Potassium 6.7 mmol/L (3.5-5.1) H* 12/31/22 11:52 Chloride 94 mmol/L (98-107) L 12/31/22 10:06 Carbon Dioxide 31 mmol/L (22-29) H 12/31/22 10:06 Anion Gap 13.1 (5-19) 12/31/22 10:06 BUN 63 mg/dL (8-23) H 12/31/22 10:06 Creatinine 3.8 mg/dL (0.5-0.9) H 12/31/22 10:06 GFR Calculation 12.0 mL/min (90-130) L 12/31/22 10:06 Glucose 135 mg/dL (65-115) H 12/31/22 10:06 POC Glucose 141 mg/dL (70-110) H 12/31/22 12:36 Calculated Osmolality 294 mOsm/kg (285-295) 12/31/22 10:06 Lactic Acid 0.6 mmol/L (0.5-2.2) 12/31/22 10:06 Calcium 9.2 mg/dL (8.5-10.5) 12/31/22 10:06 Total Bilirubin 0.4 mg/dL (0.15-1.2) 12/31/22 10:06 AST 14 U/L (0-32) 12/31/22 10:06 ALT 9 U/L (0-33) 12/31/22 10:06 Alkaline Phosphatase 85 U/L (35-105) 12/31/22 10:06 Total Protein 8.2 g/dL (6.6-8.7) 12/31/22 10:06 Albumin 4.4 g/dL (3.5-5.2) 12/31/22 10:06 Globulin 3.8 g/dL (1.3-4.6) 12/31/22 10:06 Lipase 17 U/L (13-60) 12/31/22 10:06 Urine Color Yellow (Yellow) 12/31/22 10:36 Urine Appearance Sl hazy (CLEAR) A 12/31/22 10:36 Urine pH 5 (5-7) 12/31/22 10:36 Ur Specific [place] 1.015 (1.005-1.030) 12/31/22 10:36 Urine Protein 2+ (Negative) H 12/31/22 10:36 Urine Glucose (UA) Norm (Normal) 12/31/22 10:36 Urine Ketones Negative (Negative) 12/31/22 10:36 Urine Blood Neg (Negative) 12/31/22 10:36 Urine Nitrate Negative (Negative) 12/31/22 10:36 Urine Bilirubin Neg (Negative) 12/31/22 10:36 Urine Urobilinogen Norm mg/dL (Negative) 12/31/22 10:36 Ur Leukocyte Esterase Negative (Negative) 12/31/22 10:36 Urine RBC None /hpf (0-2) 12/31/22 10:36 Urine WBC 5-10 /hpf (0-5) H 12/31/22 10:36 Ur Squamous Epith Cells 5-10 /hpf (0-5) H 12/31/22 10:36 Amorphous Sediment Not Reportable 12/31/22 10:36 Urine Bacteria 1+ /hpf (NONE) H 12/31/22 10:36 Hyaline Casts 0-4 /lpf H 12/31/22 10:36 Coarse Granular Casts 0-4 /lpf H 12/31/22 10:36 Discharge Plan Discharge Patient Disposition: Admitted As Inpatient Clinical Impression: Hyperkalemia, HTN (hypertension), Type 2 diabetes mellitus, Hemodialysis patient, Abdominal pain Condition: Stable Prescriptions: No Action cholecalciferol (vitamin D3) 25 mcg (1,000 unit) capsule 25 mcg PO DAILY metoprolol tartrate 25 mg tablet 25 mg PO BID Qty: 180 3RF furosemide 80 mg tablet 80 mg PO DAILY amlodipine 10 mg tablet 10 mg PO QPM (DME) diabetic shoes See Rx Instructions .Route .MEDSUPPLY Qty: 1 0RF Rx Instructions: As directed (DME) diabetic shoes with 3 inserts See Rx Instructions .Route .MEDSUPPLY Qty: 1 0RF Rx Instructions: As directed pantoprazole 40 mg Tablet,Delayed Release (Dr/Ec) 40 mg PO QAM sevelamer carbonate 800 mg tablet 800 mg PO TID RenaPlex-D 800 mcg-12.5 mg -2,000 unit Tablet 1 tab PO QPM losartan 50 mg tablet 50 mg PO QPM oxycodone 5 mg tablet 5 mg PO Q4H PRN (Reason: Pain) Referrals: Courtney Martins MD [Primary Care Provider] - Coding Level of Care Code ED Air Route Traffic Controller for Nany Archer
[2022-12-31 10:16] LABS: Eosinophils % 0.4 %; Hematocrit 37.7 % (37.0-47.0); Hemoglobin 10.9 g/dL (11.5-15.3); Lymphocytes # 0.5 10^3/uL (0.8-4.8); Lymphocytes % 10.6 %; Mean Corpuscular HGB Conc 28.9 g/dL (30.0-36.0); Mean Corpuscular Hemoglobin 30.1 pg (28.0-34.0); Mean Corpuscular Volume 104.1 fl (81-99); Monocytes # 0.3 10^3/uL (0.2-0.9); Monocytes % 5.7 %; Neutrophils # 4.03 10^3/uL (1.8-7.7); Neutrophils % 82.3 %; Nucleated Red Blood Cells % 0 %; Platelet Count 154 10^3/cmm (130-400); Red Blood Count 3.62 10^6/uL (4.1-5.3); White Blood Count 4.9 10^3/uL (4.0-10.0)
[2022-12-31 10:33] LABS: Alanine Aminotransferase 9 U/L (0-33); Albumin Level 4.4 g/dL (3.5-5.2); Alkaline Phosphatase 85 U/L (35-105); Anion Gap 13.1 (5-19); Aspartate Amino Transferase 14 U/L (0-32); Blood Urea Nitrogen 63 mg/dL (8-23); Calcium 9.2 mg/dL (8.5-10.5); Carbon Dioxide 31 mmol/L (22-29); Chloride 94 mmol/L (98-107); Globulin 3.8 g/dL (1.3-4.6); Glucose 135 mg/dL (65-115); Lipase 17 U/L (13-60); Osmolality Calculated 294 mOsm/kg (285-295); Potassium 6.1 mmol/L (3.5-5.1); Sodium 132 mmol/L (136-145); Total Bilirubin 0.4 mg/dL (0.15-1.2); Total Protein 8.2 g/dL (6.6-8.7)
[2022-12-31 10:52] LABS: Lactic Sepsis W/Reflex 0.6 mmol/L (0.5-2.2)
[2022-12-31 11:29] LABS: Specific Gravity, Urine 1.015 (1.005-1.030); Urine Appearance SL Hazy (CLEAR); Urine Color Yellow (Yellow); pH Urine 5 (5-7)
[2022-12-31 11:30] LABS: Add Urine Culture? No; Add Urine Microscopic? YES; Bacteria Urine 1+ /hpf; Bilirubin Urine Neg (Negative); Blood Urine Neg (Negative); Coarse Granular Casts Urine 0-4 /lpf; Glucose Urine UA Norm (Normal); Hyaline Casts Urine 0-4 /lpf; Ketones Urine Negative (Negative); Leukocyte Esterase Urine Negative (Negative); Nitrate Urine Negative (Negative); Protein Urine 2+ (Negative); Urobilinogen Urine Norm (Negative)
--- NOTE | 2022-12-31 11:32 | ECG_ITS ---
[facility] Test Date: 2022-12-31 Pat Name: Tashia Acosta Department: Room: Gender: Female Supervisor Screen Printing: : 1960 Requested By: Kenroy Prado Order Number: [id number] Power MD: Dieter Silva M.D. Measurements Intervals [place] Rate: 74 P: 48 WA: 152 QRS: 68 QRSD: 100 T: 87 QT: 358 QTc: 399 Interpretive Statements SINUS RHYTHM Compared to ECG 11/28/2022 09:34:07 ST (T wave) deviation no longer present Electronically Signed On 12-31-2022 16:18:11 CDT by Dieter Silva M.D. [id number]
[2022-12-31] MEDS: sodium bicarbonate 1 mEq/mL SDV 50mL 100 MEQ IVP (11:34)
[2022-12-31] MEDS: sodium polystyrene sulfonate 15 gm/60 mL Btl PO ×2 (11:34→17:55)
[2022-12-31] MEDS: calcium chloride 10% Syr 10 mL 1 GM IVP (11:35)
[2022-12-31] MEDS: ondansetron 2 mg/ML SDV 2 mL 4 MG IVP (11:58)
[2022-12-31] MEDS: sodium chloride 0.9% 500 ML 999 ML IV (12:09)
[2022-12-31 12:17] LABS: Potassium 6.7 mmol/L (3.5-5.1)
--- NOTE | 2022-12-31 12:26 | XRR_ITS ---
PROCEDURE INFORMATION: Exam: XR Chest Exam date and time: 12/31/2022 12:36 PM Age: 62 years old Clinical indication: Dyspnea; Prior surgery; Surgery date: 6+ months; Surgery type: Dialysis cath TECHNIQUE: Imaging protocol: Radiologic exam of the chest. Views: 1 view. COMPARISON: 1. CR XR chest 1V portable [id number] 11/28/2022 9:[address] abdomen pelvis con [id number] 12/31/2022 9:40 AM FINDINGS: Lungs: Mild snbo-yfcfksz-ctnt-right basilar reticular lung markings and possible small airspace opacity at the left lung base. Pleural spaces: Unremarkable. No pleural effusion. No pneumothorax. Heart/Mediastinum: Unremarkable. No cardiomegaly. Vasculature: Aortic arch atherosclerotic calcification. Bones/joints: Unremarkable. XR/XR chest 1V portable [id number] IMPRESSION: Mild atelectasis versus scarring at the atqa-hjqmgod-jstb-right lung bases. Difficult to entirely exclude early pneumonia.
--- NOTE | 2022-12-31 12:33 | PM.HP ---
Providers/Chief Complaint Admitting Physician: Andrew Reyes MD, hospitalist Primary Care Provider: Courtney Martins MD Chief Complaint: abd pain History of Present Illness Tashia Acosta is a 62 year old female with history of end-stage renal disease on hemodialysis, hypertension, diabetes, GERD who presents to the emergency department with abdominal discomfort, going on for about the last week. She relates it has been epigastric, above umbilicus, burning but difficult to characterize. Eating may worsen this. She is still having bowel movements. She denies any blood in her bowel movements. She states she did have hernia surgery, last month on a ventral hernia and had no obvious complications. She has not had any fevers. She has felt nauseated. No chest discomfort. Is somewhat short of breath this morning but feels swollen. Normally gets dialysis on Saturday. Review of Systems General: Reports: 10 or more systems reviewed and unremarkable except in HPI and below Card: Reports: swelling of feet/ankles and dyspnea on exertion; Denies: chest pain Resp: Reports: dyspnea; Denies: productive cough or non-productive cough GI: Reports: abdominal pain and nausea; Denies: hematochezia or melena Medications/Allergies Home Medications Medication Instructions Recorded Confirmed Last Taken Type cholecalciferol (vitamin D3) 25 25 mcg PO DAILY 09/19/20 12/31/22 12/31/22 History mcg (1,000 unit) capsule amlodipine 10 mg tablet 10 mg PO QPM 05/21/22 12/31/22 12/30/22 History furosemide 80 mg tablet 80 mg PO DAILY 05/21/22 12/31/22 12/31/22 History diabetic shoes #1 ea 06/04/22 12/31/22 Unknown Rx diabetic shoes with 3 inserts #1 ea 06/04/22 12/31/22 Unknown Rx pantoprazole 40 mg tablet,delayed 40 mg PO QAM 11/28/22 12/31/22 12/31/22 History release sevelamer carbonate 800 mg tablet 800 mg PO TID 11/28/22 12/31/22 12/31/22 History vit B,C-folic ac 800 mcg-zinc 12.5 1 tab PO QPM 11/28/22 12/31/22 12/31/22 History mg-selen-D3 2,000 unit-vit E tablet (RenaPlex-D) metoprolol tartrate 25 mg tablet 25 mg PO BID #180 tabs 12/12/22 12/31/22 12/31/22 Rx losartan 50 mg tablet 50 mg PO QPM 12/31/22 12/31/22 12/30/22 History oxycodone 5 mg tablet 5 mg PO Q4H PRN Pain 12/31/22 12/31/22 12/31/22 History Allergies Allergy/AdvReac Type Severity Reaction Status Date / Time tramadol Allergy Unknown Unknown Verified 12/10/22 11:38 PFSH Acute PFSH: Medical History (Updated 12/31/22 @ 12:42 by Andrew Reyes MD) CHF (congestive heart failure) Chronic hepatitis B COPD (chronic obstructive pulmonary disease) Diabetes mellitus Fluid overload GERD (gastroesophageal reflux disease) Hemodialysis patient Hepatitis B HTN (hypertension) PAD (peripheral artery disease) Surgical History S/P cholecystectomy S/P hernia surgery x 2 S/P oophorectomy Family History Mother CAD (coronary artery disease) Pacemaker Hypertension Diabetes Social History (Updated 12/31/22 @ 12:35 by Andrew Reyes MD) Smoking and tobacco status: former smoker Alcohol intake: never Vitals/I&O/Wt Last Vital Signs Temp 97.8 F 12/31/22 09:02 Pulse 86 12/31/22 12:12 Resp 16 12/31/22 12:12 BP 167/85 12/31/22 12:12 Pulse Ox 92 12/31/22 12:12 O2 Del Method Nasal Cannula 12/31/22 12:12 O2 Flow Rate 3 12/31/22 12:12 Weight last 48 hrs Weight 101.605 kg Physical Exam Narrative: General exam is a white female, no distress. On 3 L of oxygen HEENT: Atraumatic and normocephalic. Oropharynx clear. Neck is supple no lymphadenopathy thyromegaly Cardiovascular regular rate and rhythm with a 2/6 systolic murmur Lungs crackles bibasilar Abdomen is soft with positive bowel sounds. Tenderness is present above umbilicus. Surgical site well-healed exam was deferred Extremities show 2+ edema bilaterally. AV fistula left upper extremity with bruit and thrill Skin tinea noted under both breasts Neuro no focal deficits Data 12/31/22 10:06 12/31/22 11:52 Other Labs: CMP done earlier reviewed in its entirety. BUN 63, creatinine 3.8, bicarb 31 with an anion gap of 13.1 LFTs normal Urinalysis 5-10 whites 5-10 squamous Abdomen and pelvis CT demonstrates diverticuli, large area of omental and mesenteric fat stranding likely secondary to omental infarction. Some inflammation in the subcutaneous and soft tissues. Abscess or phlegmon felt unlikely. Likely seroma from recent surgery. This was evaluated by surgery as well, Dr. Holder. Chest x-ray which I reviewed demonstrates cardiomegaly, atherosclerotic disease, pulmonary congestion EKG demonstrates normal sinus rhythm, normal axis, and possibly some early peaking of T waves. Previous echocardiogram in June demonstrated an EF of 67% 1/4 diastolic dysfunction, moderate LVH A&P Assessment and plan (1) Hyperkalemia: Patient presents with significant hyperkalemia. In the emergency department she has been given D10 and glucose, calcium chloride, sodium bicarb, Kayexalate, albuterol. We will hold her losartan She would benefit from dialysis. She is due for dialysis on Saturday anyway. She has evidence of fluid overload and will benefit from this as well Currently as admission is secondary to hyperkalemia, she can be observation if potassium level is significantly improved by tomorrow she could potentially discharge. Nephrology consultation (2) Fluid overload: Patient has evidence of fluid overload. She has crackles bibasilar, chest x-ray demonstrating pulmonary congestion, peripheral edema. She will benefit from continuation of hemodialysis. We will consult nephrology. (3) Abdominal pain: Patient presents with abdominal pain. This can be seen with hyperkalemia. She also has a history of reflux. Initiate Protonix 40 mg twice daily Nausea control Treatment of high potassium Note that CT scan is also demonstrated likely seroma,, omental necrosis. Pain control Infection thought to be less likely. Surgery has evaluated. (4) Hemodialysis patient: Nephrology consultation Plan History of diabetes. Consistent carb diet, low in potassium Other medical problems as outlined in past medical history Full code Heparin for DVT prophylaxis Attestations Medical Necessity Statement*: Will need less than 2 midnight stay for evaluation and treatment of hyperkalemia, area of omental necrosis. Diagnoses Hyperkalemia E87.5 Fluid overload E87.70 Abdominal pain R10.9 Hemodialysis patient Z99.2 Time Spent (min) 54
[2022-12-31 12:39] LABS: Glucose Point of Care 141 mg/dL (70-110)
[2022-12-31] MEDS: pantoprazole 40 mg SDV IVP (12:56)
[2022-12-31] MEDS: insulin regular-human 100 units/1 mL 10 UNIT IVP (12:56)
[2022-12-31] MEDS: albuterol 2.5 mg/3 mL Neb 10 MG INHALATION (13:07)
[2022-12-31 13:41] LABS: Hepatitis B Surface AB 4.1 (11.5-1000)
[2022-12-31 14:10] LABS: Hepatitis B Surface Antigen Reactive (Nonreactive)
--- NOTE | 2022-12-31 14:52 | PC.NURSE ---
Patient is currently in dialysis.
--- NOTE | 2022-12-31 14:55 | PC.HD ---
This RN attempted to initiate hemodialysis using patient's LAVF. Venous access obtained without difficulty. Arterial access initially obtained, but prior to initiation of treatment, unable to pull from arterial line. Three attempts were made with three fistula needles, and on each attempt very large clots were pulled. Roller Skate Repairer notified. Dr. Calero arranging transfer to [place] for fistulogram and dialysis treatment.
--- NOTE | 2022-12-31 15:04 | PM.CONSULT ---
Providers/Reason For Consult Consulting Physician/Specialty*: Dr. Zoltan Holder, DO/General surgery Reason for Consult*: Abdominal pain Attending Physician: Andrew Reyes MD Primary Care Provider: Courtney Martins MD History of Present Illness History of Present Illness Tashia Acosta is a 62 year old female who underwent a laparoscopic repair of a ventral hernia with mesh 3 weeks ago in [facility] who presents to the hospital with a 1 week history of progressive epigastric abdominal pain. She reports nausea. The pain does not radiate. Palpation makes pain worse. Nothing makes pain better. She denies any diarrhea, constipation, hematochezia and/or melena. She was found to be in acute renal failure. A CT of the abdomen and pelvis shows an omental infarction below the recently placed mesh along with a seroma and surrounding inflammation. Review of Systems General: Reports: 10 or more systems reviewed and unremarkable except in HPI and below Medications/Allergies Home Medications Medication Instructions Recorded Confirmed Last Taken Type cholecalciferol (vitamin D3) 25 25 mcg PO DAILY 09/19/20 12/31/22 12/31/22 History mcg (1,000 unit) capsule amlodipine 10 mg tablet 10 mg PO QPM 05/21/22 12/31/22 12/30/22 History furosemide 80 mg tablet 80 mg PO DAILY 05/21/22 12/31/22 12/31/22 History diabetic shoes #1 ea 06/04/22 12/31/22 Unknown Rx diabetic shoes with 3 inserts #1 ea 06/04/22 12/31/22 Unknown Rx pantoprazole 40 mg tablet,delayed 40 mg PO QAM 11/28/22 12/31/22 12/31/22 History release sevelamer carbonate 800 mg tablet 800 mg PO TID 11/28/22 12/31/22 12/31/22 History vit B,C-folic ac 800 mcg-zinc 12.5 1 tab PO QPM 11/28/22 12/31/22 12/31/22 History mg-selen-D3 2,000 unit-vit E tablet (RenaPlex-D) metoprolol tartrate 25 mg tablet 25 mg PO BID #180 tabs 12/12/22 12/31/22 12/31/22 Rx losartan 50 mg tablet 50 mg PO QPM 12/31/22 12/31/22 12/30/22 History oxycodone 5 mg tablet 5 mg PO Q4H PRN Pain 12/31/22 12/31/22 12/31/22 History Allergies Allergy/AdvReac Type Severity Reaction Status Date / Time tramadol Allergy Unknown Unknown Verified 12/10/22 11:38 Current Medications Generic Name Dose Route Start Last Admin Trade Name Freq PRN Reason Stop Dose Admin Pantoprazole Sodium 40 mg 12/31/22 12:30 12/31/22 12:56 Pantoprazole 40 Mg Sdv IVP 40 mg Q12H GUSTAVO Administration PFSH Acute PFSH: Medical History CHF (congestive heart failure) Chronic hepatitis B COPD (chronic obstructive pulmonary disease) Diabetes mellitus Fluid overload GERD (gastroesophageal reflux disease) Hemodialysis patient Hepatitis B HTN (hypertension) PAD (peripheral artery disease) Surgical History S/P cholecystectomy S/P hernia surgery x 2 S/P oophorectomy Family History Mother CAD (coronary artery disease) Pacemaker Hypertension Diabetes Social History Smoking and tobacco status: former smoker Alcohol intake: never Vitals/I&O/Wt Last Vital Signs Temp 97.8 F 12/31/22 09:02 Pulse 83 12/31/22 13:26 Resp 15 12/31/22 13:26 BP 154/68 12/31/22 13:26 Pulse Ox 95 12/31/22 13:26 O2 Del Method Nasal Cannula 12/31/22 13:10 O2 Flow Rate 3 12/31/22 13:10 12/31/22 12/31/22 12/31/22 06:59 14:59 22:59 Intake Total 525 / 525 Balance 525 / 525 Weight last 48 hrs Weight 224 lb Physical Exam Narrative: General : Patient is well developed , no acute distress, oriented x3 Head : Normal cephalic, a-traumatic. Ears : Pinnae and external canal are normal. Hearing is normal. Eyes : PERRLA, Sclera and injection are normal. No conjunctival discharge. Nose : Mucous membranes are without erythema. Throat : buccal mucosa is normal, gums are without significant recession or hypertrophy. Lungs : Equal chest rise bilaterally, no use of accessory muscles, trachea is midline. Cor : Rate and rhythm are normal. Abdomen : Soft, ND, minimal epigastric tenderness, expected seroma over suprapubic hernia mesh. No g/r/m Extremities : No edema, no cyanosis or clubbing, dorsalis pedis pulses are present bilaterally, non-tender to palpation of calves. Upper extremities are normal bilaterally. Back : non-tender to palpation, no CVA tenderness. Neuro : CN II - XII intact, Upper and lower extremities have equal and full strength Data 12/31/22 10:06 12/31/22 11:52 A&P Assessment and plan (1) Abdominal pain: (2) Acute kidney injury: (3) Omental infarction: (4) Seroma after procedure: Plan She does not appear to have a mesh infection at this time. The omental infarction is self-limiting. This is typically treated with anti-inflammatories. However the patient is in acute renal failure. No acute surgical intervention at this time. Medical management per hospitalist. Okay for oral diet Coding Level of Care Code 10530 Diagnoses Abdominal pain R10.9 Acute kidney injury N17.9 Omental infarction K55.069 Seroma after procedure
--- NOTE | 2022-12-31 16:00 | W.PM.EVENTAC ---
Event Note Event Note: Attempted dialysis. Clots out of lower site. Nephrology recommends fistulagram and transfer. Lasix 80mg IV ordered. Stat potassium. Accepted at [facility] but may be tomorrow before actual transfer occurs, Dr. Arroyo accepting. Cannot rule out need for temporary cath pending this. Will depend on potassium control/improvement. Does not need dialysis emergently for fluid overload currently.
--- NOTE | 2022-12-31 16:04 | PM.TDS ---
Transfer Summary Providers Date of Admission: 12/31/22 13:01 Date of Discharge/Transfer: 12/31/22 Attending Provider at Admission: Andrew Reyes MD Attending Provider at Transfer: Andrew Reyes MD Primary Care Provider: Courtney Martins MD Transfer Plans: Anticipated date of transfer: 12/31/22. Diagnoses at Discharge Discharge Diagnosis (1) Abdominal pain: Status: Acute (2) Acute kidney injury: Status: Acute (3) Omental infarction: Status: Acute (4) Seroma after procedure: Status: Acute Reason for Visit Reason for Visit abd pain Hospital Course Hospital Course See history and physical done just hours earlier. Patient presented the hospital with abdominal pain, found to likely have omental fat necrosis and seroma. Noted to have be significantly hyperkalemic, and normally has dialysis Saturday. Went to the floor to receive dialysis, and found significant clots at the lower puncture site and dialysis was not able to be performed. Nephrology recommended transfer for fistulogram. Called [facility], and patient is excepted but is unlikely to be able to transfer until January 01. Patient has already received significant treatment for hyperkalemia including insulin and glucose, bicarb, albuterol, Kayexalate. I have now given 80 mg of Lasix IV, and ordered a stat potassium level. I am awaiting this level to determine if potassium can be controlled until transfer, or have temporary dialysis will be needed in the interim. She does not need dialysis fluid overload. Dr. Cruz Newell accepted the patient. I discussed with the patient the risks and benefits of transfer. Physical Exam Narrative: See exam done earlier today TS Data Studies Completed and Pending Pending at discharge Category Date Time Status Complete Blood Count w/Auto AM LABS Lab 01/01/23 04:00 Ordered Comprehensive Metabolic Panel AM LABS Lab 01/01/23 04:00 Ordered Potassium Stat Lab 12/31/22 15:28 Received Labs from last 24 hours 12/31/22 12/31/22 12/31/22 15:28 12:36 11:52 WBC RBC Hgb Hct MCV MCH MCHC RDW Plt Count MPV Neut % (Auto) Lymph % (Auto) [place] % (Auto) Eos % (Auto) Baso % (Auto) Neut # (Auto) Lymph # (Auto) [place] # (Auto) Eos # (Auto) Baso # (Auto) Nucleated RBC % (auto) Nucleated RBCs # Sodium Potassium Pending 6.7 H* Chloride Carbon Dioxide Anion Gap BUN Creatinine GFR Calculation Glucose POC Glucose 141 H Calculated Osmolality Lactic Acid Calcium Total Bilirubin AST ALT Alkaline Phosphatase Total Protein Albumin Globulin Lipase Urine Color Urine Appearance Urine pH Ur Specific [place] Urine Protein Urine Glucose (UA) Urine Ketones Urine Blood Urine Nitrate Urine Bilirubin Urine Urobilinogen Ur Leukocyte Esterase Urine RBC Urine WBC Ur Squamous Epith Cells Amorphous Sediment Urine Bacteria Hyaline Casts Coarse Granular Casts Hep Bs Antigen Hep Bs Antibody 12/31/22 12/31/22 12/31/22 10:36 10:06 10:06 WBC RBC Hgb Hct MCV MCH MCHC RDW Plt Count MPV Neut % (Auto) Lymph % (Auto) [place] % (Auto) Eos % (Auto) Baso % (Auto) Neut # (Auto) Lymph # (Auto) [place] # (Auto) Eos # (Auto) Baso # (Auto) Nucleated RBC % (auto) Nucleated RBCs # Sodium Potassium Chloride Carbon Dioxide Anion Gap BUN Creatinine GFR Calculation Glucose POC Glucose Calculated Osmolality Lactic Acid 0.6 Calcium Total Bilirubin AST ALT Alkaline Phosphatase Total Protein Albumin Globulin Lipase Urine Color Yellow Urine Appearance Sl hazy A Urine pH 5 Ur Specific [place] 1.015 Urine Protein 2+ H Urine Glucose (UA) Norm Urine Ketones Negative Urine Blood Neg Urine Nitrate Negative Urine Bilirubin Neg Urine Urobilinogen Norm Ur Leukocyte Esterase Negative Urine RBC None Urine WBC 5-10 H Ur Squamous Epith Cells 5-10 H Amorphous Sediment Not Reportable Urine Bacteria 1+ H Hyaline Casts 0-4 H Coarse Granular Casts 0-4 H Hep Bs Antigen Reactive H Hep Bs Antibody 4.1 L 12/31/22 12/31/22 10:06 10:06 WBC 4.9 RBC 3.62 L Hgb 10.9 L Hct 37.7 MCV 104.1 H MCH 30.1 MCHC 28.9 L RDW 14.0 Plt Count 154 MPV 11.0 H Neut % (Auto) 82.3 Lymph % (Auto) 10.6 [place] % (Auto) 5.7 Eos % (Auto) 0.4 Baso % (Auto) 0.0 Neut # (Auto) 4.03 Lymph # (Auto) 0.5 L [place] # (Auto) 0.3 Eos # (Auto) 0.0 Baso # (Auto) 0.0 Nucleated RBC % (auto) 0 Nucleated RBCs # 0.0 Sodium 132 L Potassium 6.1 H Chloride 94 L Carbon Dioxide 31 H Anion Gap 13.1 BUN 63 H Creatinine 3.8 H GFR Calculation 12.0 L Glucose 135 H POC Glucose Calculated Osmolality 294 Lactic Acid Calcium 9.2 Total Bilirubin 0.4 AST 14 ALT 9 Alkaline Phosphatase 85 Total Protein 8.2 Albumin 4.4 Globulin 3.8 Lipase 17 Urine Color Urine Appearance Urine pH Ur Specific [place] Urine Protein Urine Glucose (UA) Urine Ketones Urine Blood Urine Nitrate Urine Bilirubin Urine Urobilinogen Ur Leukocyte Esterase Urine RBC Urine WBC Ur Squamous Epith Cells Amorphous Sediment Urine Bacteria Hyaline Casts Coarse Granular Casts Hep Bs Antigen Hep Bs Antibody Completed Studies During Hospitalization Category Date Time Status CT abdomen pelvis wo con [id number] Stat Cat Scan 12/31/22 09:27 Completed XR chest 1V portable [id number] Stat Exams 12/31/22 12:26 Completed Laboratory Last Values WBC 4.9 10^3/uL (4.0-10.0) 12/31/22 10:06 RBC 3.62 10^6/uL (4.1-5.3) L 12/31/22 10:06 Hgb 10.9 g/dL (11.5-15.3) L 12/31/22 10:06 Hct 37.7 % (37.0-47.0) 12/31/22 10:06 MCV 104.1 fl (81-99) H 12/31/22 10:06 MCH 30.1 pg (28.0-34.0) 12/31/22 10:06 MCHC 28.9 g/dL (30.0-36.0) L 12/31/22 10:06 RDW 14.0 % (12.1-15.1) 12/31/22 10:06 Plt Count 154 10^3/cmm (130-400) 12/31/22 10:06 MPV 11.0 fL (7.4-10.4) H 12/31/22 10:06 Neut % (Auto) 82.3 % 12/31/22 10:06 Lymph % (Auto) 10.6 % 12/31/22 10:06 [place] % (Auto) 5.7 % 12/31/22 10:06 Eos % (Auto) 0.4 % 12/31/22 10:06 Baso % (Auto) 0.0 % 12/31/22 10:06 Neut # (Auto) 4.03 10^3/uL (1.8-7.7) 12/31/22 10:06 Lymph # (Auto) 0.5 10^3/uL (0.8-4.8) L 12/31/22 10:06 [place] # (Auto) 0.3 10^3/uL (0.2-0.9) 12/31/22 10:06 Eos # (Auto) 0.0 10^3/uL (0.0-0.8) 12/31/22 10:06 Baso # (Auto) 0.0 10^3/uL (0.0-0.1) 12/31/22 10:06 Nucleated RBC % (auto) 0 % 12/31/22 10:06 Nucleated RBCs # 0.0 /100WBC 12/31/22 10:06 Sodium 132 mmol/L (136-145) L 12/31/22 10:06 Potassium 6.7 mmol/L (3.5-5.1) H* 12/31/22 11:52 Chloride 94 mmol/L (98-107) L 12/31/22 10:06 Carbon Dioxide 31 mmol/L (22-29) H 12/31/22 10:06 Anion Gap 13.1 (5-19) 12/31/22 10:06 BUN 63 mg/dL (8-23) H 12/31/22 10:06 Creatinine 3.8 mg/dL (0.5-0.9) H 12/31/22 10:06 GFR Calculation 12.0 mL/min (90-130) L 12/31/22 10:06 Glucose 135 mg/dL (65-115) H 12/31/22 10:06 POC Glucose 141 mg/dL (70-110) H 12/31/22 12:36 Calculated Osmolality 294 mOsm/kg (285-295) 12/31/22 10:06 Lactic Acid 0.6 mmol/L (0.5-2.2) 12/31/22 10:06 Calcium 9.2 mg/dL (8.5-10.5) 12/31/22 10:06 Total Bilirubin 0.4 mg/dL (0.15-1.2) 12/31/22 10:06 AST 14 U/L (0-32) 12/31/22 10:06 ALT 9 U/L (0-33) 12/31/22 10:06 Alkaline Phosphatase 85 U/L (35-105) 12/31/22 10:06 Total Protein 8.2 g/dL (6.6-8.7) 12/31/22 10:06 Albumin 4.4 g/dL (3.5-5.2) 12/31/22 10:06 Globulin 3.8 g/dL (1.3-4.6) 12/31/22 10:06 Lipase 17 U/L (13-60) 12/31/22 10:06 Urine Color Yellow (Yellow) 12/31/22 10:36 Urine Appearance Sl hazy (CLEAR) A 12/31/22 10:36 Urine pH 5 (5-7) 12/31/22 10:36 Ur Specific [place] 1.015 (1.005-1.030) 12/31/22 10:36 Urine Protein 2+ (Negative) H 12/31/22 10:36 Urine Glucose (UA) Norm (Normal) 12/31/22 10:36 Urine Ketones Negative (Negative) 12/31/22 10:36 Urine Blood Neg (Negative) 12/31/22 10:36 Urine Nitrate Negative (Negative) 12/31/22 10:36 Urine Bilirubin Neg (Negative) 12/31/22 10:36 Urine Urobilinogen Norm mg/dL (Negative) 12/31/22 10:36 Ur Leukocyte Esterase Negative (Negative) 12/31/22 10:36 Urine RBC None /hpf (0-2) 12/31/22 10:36 Urine WBC 5-10 /hpf (0-5) H 12/31/22 10:36 Ur Squamous Epith Cells 5-10 /hpf (0-5) H 12/31/22 10:36 Amorphous Sediment Not Reportable 12/31/22 10:36 Urine Bacteria 1+ /hpf (NONE) H 12/31/22 10:36 Hyaline Casts 0-4 /lpf H 12/31/22 10:36 Coarse Granular Casts 0-4 /lpf H 12/31/22 10:36 Hep Bs Antigen Reactive (Nonreactive) H 12/31/22 10:06 Hep Bs Antibody 4.1 (11.5-1000) L 12/31/22 10:06 Radiology Impressions Abdomen/Pelvis CT 12/31/22 09:27 IMPRESSION: 1. Large area of omental and mesenteric fat stranding just to the LEFT of midline in the infraumbilical region. Suspect this is probably an area of omental infarction which extends to the ventral abdominal wall. There is also continuous inflammation extending into the subcutaneous soft tissues and a possible subcutaneous abscess or phlegmon at the same level. Due to the extensive involvement of the omentum and the subcutaneous soft tissue recommend follow-up CT in 3-4 weeks after treatment with short resolution. This would ensure no underlying additional mass. There may have been a defect within the abdominal wall allowing the inflammatory changes associate with the infarct to continue beyond the peritoneal cavity. 2. Mild bilateral perinephric stranding with no obstruction. 3. Prior cholecystectomy. 4. Sigmoid diverticulosis without acute diverticulitis. 5. Bilateral adrenal myolipomas. Chest X-Ray 12/31/22 12:26 IMPRESSION: Mild atelectasis versus scarring at the dmxy-shhiwdc-epeq-right lung bases. Difficult to entirely exclude early pneumonia. Recent Clincial Data Last Vital Signs Temp 97.8 F 12/31/22 09:02 Pulse 83 12/31/22 13:26 Resp 15 12/31/22 13:26 BP 154/68 12/31/22 13:26 Pulse Ox 95 12/31/22 13:26 O2 Del Method Nasal Cannula 12/31/22 13:10 O2 Flow Rate 3 12/31/22 13:10 Vital Signs Temp Pulse Resp BP Pulse Ox O2 Del Method O2 Flow Rate 12/31/22 13:26 83 15 154/68 95 12/31/22 13:10 85 16 95 Nasal Cannula 3 12/31/22 12:12 86 16 167/85 92 Nasal Cannula 3 12/31/22 11:04 75 16 161/92 96 12/31/22 10:14 74 28 H 166/83 94 Nasal Cannula 3 12/31/22 09:19 72 26 H 157/77 93 Nasal Cannula 5 12/31/22 09:02 97.8 F 72 16 147/73 74 L Nasal Cannula 3 Intake & Output/Weight 12/29/22 12/30/22 12/31/22 01/01/23 06:59 06:59 06:59 06:59 Intake Total 525 / 525 Balance 525 / 525 Weight 101.605 kg Vitals Last Vital Signs Temp 97.8 F 12/31/22 09:02 Pulse 83 12/31/22 13:26 Resp 15 12/31/22 13:26 BP 154/68 12/31/22 13:26 Pulse Ox 95 12/31/22 13:26 O2 Del Method Nasal Cannula 12/31/22 13:10 O2 Flow Rate 3 12/31/22 13:10 TS Medications Medications Acetaminophen (Acetaminophen 325 Mg Tablet) 650 mg PO Q6H PRN PRN Reason: Mild/Mod Pain Or Temp >/= 101 Amlodipine Besylate (Amlodipine 10 Mg Tablet) 10 mg PO QPM GUSTAVO Furosemide (Furosemide 40 Mg Tablet) 80 mg PO DAILY GUSTAVO Heparin Sodium (Porcine) (Heparin 5,000 Unit/Ml Inj 1 Ml) 5,000 unit SUBCUT Q12H GUSTAVO Albumin Human (Albumin) 12.5 gm in 50 mls @ 60 mls/hr IV PRN PRN PRN Reason: Hypotension and/or symptomatic Sodium Chloride (Sodium Chloride 0.9%) 1,000 mls @ 0 mls/hr IV .Q0M PRN PRN Reason: hypotension or symptomatic Metoprolol Tartrate (Metoprolol Tartrate 25 Mg Tablet) 25 mg PO BID GUSTAVO Nystatin (Nystatin Cream 30 Gm) 1 applic TOPICAL BID GUSTAVO Ondansetron HCl (Ondansetron 2 Mg/Ml Sdv 2 Ml) 4 mg IVP Q6H PRN PRN Reason: vomiting, or N/V if npo Oxycodone HCl (Oxycodone 5 Mg Ir Tab/Cap) 5 mg PO Q6H PRN PRN Reason: SEVERE PAIN Pantoprazole Sodium (Pantoprazole 40 Mg Sdv) 40 mg IVP Q12H [facility] Last Admin: 12/31/22 12:56 Dose: 40 mg Sevelamer Carbonate (Sevelamer 800 Mg Tablet) 800 mg PO TID GUSTAVO Discontinued Medications Albuterol Sulfate (Albuterol 2.5 Mg/3 Ml Neb) 10 mg INHALATION ONCE ONE Stop: 12/31/22 12:26 Last Admin: 12/31/22 13:07 Dose: 10 mg Calcium Chloride (Calcium Chloride 10% Syr 10 Ml) 1 gm IVP ONCE ONE Stop: 12/31/22 11:22 Last Admin: 12/31/22 11:35 Dose: 1 gm Furosemide (Furosemide 10 Mg/Ml Sdv 10ml) 80 mg IVP ONCE ONE Stop: 12/31/22 15:18 Heparin Sodium (Porcine) (Heparin, Porcine 1,000 Unit/Ml Inj 10 Ml) 1,000 unit IV ONCE ONE Stop: 12/31/22 12:57 Last Admin: 12/31/22 15:59 Dose: Not Given Sodium Chloride (Sodium Chloride 0.9%) 500 mls @ 999 mls/hr IV .Q31M ONE Stop: 12/31/22 12:37 Last Infusion: 12/31/22 13:17 Dose: Infused Dextrose 17.75 ml/ Sterile (Water 7.25 ml/ N/A) 25 mls @ 300 mls/hr IVP ONCE ONE Stop: 12/31/22 12:49 Last Infusion: 12/31/22 13:17 Dose: Infused Insulin Human Regular (Insulin Regular-Human 100 Units/1 Ml) 10 unit IVP ONCE ONE Stop: 12/31/22 12:26 Last Admin: 12/31/22 12:56 Dose: 10 unit Ondansetron HCl (Ondansetron 2 Mg/Ml Sdv 2 Ml) 4 mg IVP ONCE ONE Stop: 12/31/22 11:56 Last Admin: 12/31/22 11:58 Dose: 4 mg Sodium Bicarbonate (Sodium Bicarbonate 1 Meq/Ml Sdv 50ml) 100 meq IVP ONCE ONE Stop: 12/31/22 11:22 Last Admin: 12/31/22 11:34 Dose: 100 meq Sodium Polystyrene Sulfonate (Sodium Polystyrene Sulfonate 15 Gm/60 Ml Btl) 15 gm PO ONCE ONE Stop: 12/31/22 11:22 Last Admin: 12/31/22 11:34 Dose: 15 gm Allergies tramadol Allergy (Unknown, Verified 12/10/22 11:38) Unknown Home Medications cholecalciferol (vitamin D3) 25 mcg (1,000 unit) capsule 25 mcg PO DAILY 09/19/20 [History Confirmed 12/31/22] amlodipine 10 mg tablet 10 mg PO QPM 05/21/22 [History Confirmed 12/31/22] furosemide 80 mg tablet 80 mg PO DAILY 05/21/22 [History Confirmed 12/31/22] diabetic shoes #1 ea 06/04/22 [Rx Confirmed 12/31/22] diabetic shoes with 3 inserts #1 ea 06/04/22 [Rx Confirmed 12/31/22] pantoprazole 40 mg tablet,delayed release 40 mg PO QAM 11/28/22 [History Confirmed 12/31/22] sevelamer carbonate 800 mg tablet 800 mg PO TID 11/28/22 [History Confirmed 12/31/22] vit B,C-folic ac 800 mcg-zinc 12.5 mg-selen-D3 2,000 unit-vit E tablet (RenaPlex-D) 1 tab PO QPM 11/28/22 [History Confirmed 12/31/22] metoprolol tartrate 25 mg tablet 25 mg PO BID #180 tabs 12/12/22 [Rx Confirmed 12/31/22] losartan 50 mg tablet 50 mg PO QPM 12/31/22 [History Confirmed 12/31/22] oxycodone 5 mg tablet 5 mg PO Q4H PRN Pain 12/31/22 [History Confirmed 12/31/22] Discharge Plan Discharge Patient Disposition: Xfer Short-Term Hosp Condition: Stable Prescriptions: No Action cholecalciferol (vitamin D3) 25 mcg (1,000 unit) capsule 25 mcg PO DAILY metoprolol tartrate 25 mg tablet 25 mg PO BID Qty: 180 3RF furosemide 80 mg tablet 80 mg PO DAILY amlodipine 10 mg tablet 10 mg PO QPM (DME) diabetic shoes See Rx Instructions .Route .MEDSUPPLY Qty: 1 0RF Rx Instructions: As directed (DME) diabetic shoes with 3 inserts See Rx Instructions .Route .MEDSUPPLY Qty: 1 0RF Rx Instructions: As directed pantoprazole 40 mg Tablet,Delayed Release (Dr/Ec) 40 mg PO QAM sevelamer carbonate 800 mg tablet 800 mg PO TID RenaPlex-D 800 mcg-12.5 mg -2,000 unit Tablet 1 tab PO QPM losartan 50 mg tablet 50 mg PO QPM oxycodone 5 mg tablet 5 mg PO Q4H PRN (Reason: Pain) Discharge Orders: Transfer Out of Facility (Order); Ordered 12/31/22 Ordered By: Andrew Reyes Referrals: Courtney Martins MD [Primary Care Provider] - Transfer Attestations Time Spent in Transfer Care: greater than 30 min Quality Metrics Clinical Quality Measures [ No reported AMI, CVA or VTE this stay] Coding Level of Care Code 08055 Total time (in minutes) for Discharge: 37 Diagnoses Abdominal pain R10.9 Acute kidney injury N17.9 Omental infarction K55.069 Seroma after procedure Time Spent (min) 76
[2022-12-31 16:05] LABS: Potassium 5.8 mmol/L (3.5-5.1)
[2022-12-31] MEDS: heparin 5,000 unit/mL INJ 1 mL 5000 UNIT SUBCUT (16:39)
[2022-12-31] MEDS: FUROsemide 10 mg/mL SDV 10mL 80 MG IVP (16:39)
--- NOTE | 2022-12-31 16:56 | PM.CONSULT ---
Providers/Reason For Consult Consulting Physician/Specialty*: [facility]/Nephrology Reason for Consult*: ESRD Attending Physician: Andrew Reyes MD Primary Care Provider: Courtney Martins MD History of Present Illness History of Present Illness Tashia Acosta is a 62 year old female patient is a 60-year-old female with past medical history of end-stage renal disease on hemodialysis per Saturday schedule, hypertension, diabetes, gastroesophageal reflux disease presented to the emergency department with abdominal pain. She reported that she had hernia surgery last month. Potassium was elevated at 6.7. Chest x-ray showed cardiomegaly and possible pulmonary congestion. Abdominal pelvic CT has demonstrated omental and mesenteric fat stranding likely secondary to movement of infarction Review of Systems Narrative: negative Medications/Allergies Home Medications Medication Instructions Recorded Confirmed Last Taken Type cholecalciferol (vitamin D3) 25 25 mcg PO DAILY 09/19/20 12/31/22 12/31/22 History mcg (1,000 unit) capsule amlodipine 10 mg tablet 10 mg PO QPM 05/21/22 12/31/22 12/30/22 History furosemide 80 mg tablet 80 mg PO DAILY 05/21/22 12/31/22 12/31/22 History diabetic shoes #1 ea 06/04/22 12/31/22 Unknown Rx diabetic shoes with 3 inserts #1 ea 06/04/22 12/31/22 Unknown Rx pantoprazole 40 mg tablet,delayed 40 mg PO QAM 11/28/22 12/31/22 12/31/22 History release sevelamer carbonate 800 mg tablet 800 mg PO TID 11/28/22 12/31/22 12/31/22 History vit B,C-folic ac 800 mcg-zinc 12.5 1 tab PO QPM 11/28/22 12/31/22 12/31/22 History mg-selen-D3 2,000 unit-vit E tablet (RenaPlex-D) metoprolol tartrate 25 mg tablet 25 mg PO BID #180 tabs 12/12/22 12/31/22 12/31/22 Rx losartan 50 mg tablet 50 mg PO QPM 12/31/22 12/31/22 12/30/22 History oxycodone 5 mg tablet 5 mg PO Q4H PRN Pain 12/31/22 12/31/22 12/31/22 History Allergies Allergy/AdvReac Type Severity Reaction Status Date / Time tramadol Allergy Unknown Unknown Verified 12/10/22 11:38 Current Medications Generic Name Dose Route Start Last Admin Trade Name Sina PRN Reason Stop Dose Admin Heparin Sodium (Porcine) 5,000 unit 12/31/22 14:51 12/31/22 16:39 Heparin 5,000 Unit/Ml Inj 1 Ml SUBCUT 5,000 unit Q12H GUSTAVO Administration Pantoprazole Sodium 40 mg 12/31/22 12:30 12/31/22 12:56 Pantoprazole 40 Mg Sdv IVP 40 mg Q12H GUSTAVO Administration PFSH Acute PFSH: Medical History (Updated 12/31/22 @ 17:06 by Lanie Camacho MD) CHF (congestive heart failure) Chronic hepatitis B COPD (chronic obstructive pulmonary disease) Diabetes mellitus Fluid overload GERD (gastroesophageal reflux disease) Hemodialysis patient Hepatitis B HTN (hypertension) PAD (peripheral artery disease) Peripheral edema Shortness of breath Surgical History S/P cholecystectomy S/P hernia surgery x 2 S/P oophorectomy Family History Mother CAD (coronary artery disease) Pacemaker Hypertension Diabetes Social History Smoking and tobacco status: former smoker Alcohol intake: never Vitals/I&O/Wt Last Vital Signs Temp 97.8 F 12/31/22 09:02 Pulse 83 12/31/22 13:26 Resp 15 12/31/22 13:26 BP 154/68 12/31/22 13:26 Pulse Ox 95 12/31/22 13:26 O2 Del Method Nasal Cannula 12/31/22 13:10 O2 Flow Rate 3 12/31/22 13:10 12/31/22 12/31/22 12/31/22 06:59 14:59 22:59 Intake Total 525 / 525 Balance 525 / 525 Weight last 48 hrs Weight 101.605 kg Physical Exam Narrative: No distress PEERLA S1S2 RRR per report +EDEMA Data 12/31/22 10:06 12/31/22 15:28 A&P Assessment and plan (1) ESRD (end stage renal disease): Plan 1. End-stage renal disease: Dialysis per [facility] schedule last dialysis was Saturday. Patient now has hyperkalemia and volume overload and dialysis was attempted today but patient is AV fistula is nonfunctional with multiple clots drawn and unable to cannulate. We will treat potassium medically for the moment and recommend transfer for higher level of care including fistulogram and fistula revision. If unable to transfer soon, will request him for HD catheter placement. -Awaiting repeat BMP. 2. Hypertension: Blood pressure controlled 3. Abdominal pain: Seen by general surgery, conservative management Patient evaluated using audiovisual cart. Time spent 35 minutes Consult Attestations Medical Necessity Statement: per medicine Coding Level of Care Code Acute Code for Chg Fwd Diagnoses ESRD (end stage renal disease) N18.6
[2022-12-31 17:27] LABS: Glucose Point of Care 96 mg/dL (70-110)
[2022-12-31] MEDS: sodium bicarbonate 8.4% 1 mEq/mL 50mL Syr 100 MEQ IVP (17:46)
--- NOTE | 2022-12-31 19:13 | PC.NURSE ---
In room with patient her , Rosalind ARVIZU and this nurse. Patient is requesting to leave against medical advice. Advised patient that we can not keep her here against her will and that it is her right. Encouraged her to stay though as she is at high risk for or permanent disability. Spoke with patient and her about the risks of leaving against medical advice. The risks are or permanent disability is extremely high as he has a blood clot in the fistula which could break free and cause a stroke or heart attack or . Patient notified also that she has a high potassium which could also cause her a cardiac arrhythmia which could cause . Encouraged patient to stay again as well because we are transferring her to [facility] as soon as they have a bed hopefully tomorrow. Patient refused to stay as she is going to [facility] on her own tonight. Patient signed AMA in front of , Rosalind ARVIZU and this RN.
== END 2022-12-31 19:13 | disposition left against medical advice (07) ==
LOC: ER 13:10 → MEDSURG 13:27
PROVIDERS: Hospitalist; Physician Assistant; Admitting Provider Internal Medicine; Emergency Provider Family Medicine; PCP Family Medicine; Visit Provider Internal Medicine
DX: E87.5 Hyperkalemia (principal); Y83.8 Other surgical procedures as the cause of abnormal reaction of the patient, or of later complication, without mention of misadventure at the time of the procedure; E87.70 Fluid overload, unspecified; Z99.2 Dependence on renal dialysis; J44.9 Chronic obstructive pulmonary disease, unspecified; K21.9 Gastro-esophageal reflux disease without esophagitis; E11.51 Type 2 diabetes mellitus with diabetic peripheral angiopathy without gangrene; N17.9 Acute kidney failure, unspecified; I13.2 Hypertensive heart and chronic kidney disease with heart failure and with stage 5 chronic kidney disease, or end stage renal disease; I50.9 Heart failure, unspecified; N18.6 End stage renal disease; E11.22 Type 2 diabetes mellitus with diabetic chronic kidney disease; Z87.891 Personal history of nicotine dependence; B35.9 Dermatophytosis, unspecified; B18.1 Chronic viral hepatitis B without delta-agent; Z53.29 Procedure and treatment not carried out because of patient's decision for other reasons; T82.898A Other specified complication of vascular prosthetic devices, implants and grafts, initial encounter; Y83.2 Surgical operation with anastomosis, bypass or graft as the cause of abnormal reaction of the patient, or of later complication, without mention of misadventure at the time of the procedure; L76.34 Postprocedural seroma of skin and subcutaneous tissue following other procedure; K55.049 Acute infarction of large intestine, extent unspecified
CPT/HCPCS: 36415; 36416; 71045; 74176; 80053; 81001; 82962; 83605; 83690; 84132; 85025; 86706; 87340; 93005; 94640; 96365; 96372; 96375; 96376; 99285; C9113; G0378; J1644; J1815; J1940; J2405; J3490; J7040; J7613

== ENCOUNTER 2023-12-18 08:37 | Emergency (ER) | payer MEDICAID, SELFPAY ==
[2023-12-18 08:37] VITALS: BMI 41.9
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
--- NOTE | 2023-12-18 09:19 | PC.NURSE ---
See other nose note PT arrives by ems with CPR in progress. pt PEA on the monitor. pt has blood running from nose and mouth. pt appears to have brain matter coming from back of head. pt remained in pea or asystole during code. pt received multiple rounds of cpr and epi. pt arrived with io to right shoulder and two catheters placed in chest area. 0832 ems arrival cpr in progress 0834 pulse check-no pulse 0834 epi given 0836 pulse check pea 0838 epi given 0840 pulse check epi given 0841epi given 0842 pulse check asystole TOD called by Dr. ramirez @[id number]
== END 2023-12-18 08:42 | disposition expired ==
PROVIDERS: Emergency Provider Emergency Medicine; PCP Family Medicine
DX: I46.9 Cardiac arrest, cause unspecified (principal); E11.22 Type 2 diabetes mellitus with diabetic chronic kidney disease; I13.2 Hypertensive heart and chronic kidney disease with heart failure and with stage 5 chronic kidney disease, or end stage renal disease; I50.9 Heart failure, unspecified; N18.6 End stage renal disease; Z99.2 Dependence on renal dialysis; Z86.19 Personal history of other infectious and parasitic diseases; J44.9 Chronic obstructive pulmonary disease, unspecified; Z87.891 Personal history of nicotine dependence; V89.2XXA Person injured in unspecified motor-vehicle accident, traffic, initial encounter
CPT/HCPCS: 99285